=== PATIENT | female | born 1980 | race Caucasian/White ===

== ENCOUNTER 2018-10-07 12:18 | Emergency (ER) | payer MEDICAID ==
[2018-10-07 14:56] LABS: URINE PH (Dip) POC 5.5 (5.0-8.5)
[2018-10-07 14:56] LABS: URINE BLOOD (Dip) POC 3+ (NEGATIVE); URINE GLUCOSE (Dip) POC Negative (NEGATIVE); URINE KETONES (Dip) POC Negative (NEGATIVE); URINE LEUKOCYTE EST (Dip) POC Negative (NEGATIVE); URINE NITRITE (Dip) POC Negative (NEGATIVE); URINE TOTAL PROTEIN POC Negative (NEGATIVE)
== END 2018-10-07 15:20 | disposition home or self-care (01) ==
LOC: FTE 12:18
DX: R05 Cough (principal)
CPT/HCPCS: 71045; 81003; 81025; 99283-25